=== PATIENT | female | born 1995 | race Two or more races ===

== ENCOUNTER 2019-02-12 18:45 | Emergency (ER) | payer OTHER ==
[~2019-02-12] VITALS: Ht 162.6 cm; Wt 117.9 kg
== END 2019-02-12 20:26 | disposition home or self-care (01) ==
LOC: ER 18:45
DX: S80.871A Other superficial bite, right lower leg, initial encounter (principal); L03.115 Cellulitis of right lower limb; W57.XXXA Bitten or stung by nonvenomous insect and other nonvenomous arthropods, initial encounter; Y93.89 Activity, other specified; Y92.89 Other specified places as the place of occurrence of the external cause; Y99.8 Other external cause status

== ENCOUNTER 2019-10-29 20:34 | Inpatient (IN) | payer OTHER ==
[~2019-10-29] VITALS: Ht 162.6 cm; Wt 117.9 kg
[2019-10-29] MEDS ORDERED: SIDEROL TABLET1 EACH (20:43)
[2019-10-31] MEDS ORDERED: SPRINTEC 28 DA1 EACH PO (08:37)
== END 2019-10-31 10:06 | disposition home or self-care (01) | DRG 760 ==
LOC: ER 20:34 → SEC-K 22:07 → OB/GYN 22:07
PROVIDERS: ADMIT Obstetrics & Gynecology
PROC: BU46ZZZ Ultrasonography of Uterus (ICD-10-PCS; principal; 2019-10-29)
PROC: 30233N1 Transfusion of Nonautologous Red Blood Cells into Peripheral Vein, Percutaneous Approach (ICD-10-PCS; 2019-10-30)
DX: N92.0 Excessive and frequent menstruation with regular cycle (principal); D62 Acute posthemorrhagic anemia; N84.0 Polyp of corpus uteri

== ENCOUNTER 2019-12-17 06:02 | Day surgery (SDC) | payer OTHER ==
[~2019-12-17 06:02] MED LIST: SIDEROL TABLET1 EACH; SPRINTEC 28 DA1 EACH PO
[2019-12-17] MEDS ORDERED: MONDOXYNE NL100 MG PO (09:44)
[2019-12-17] MEDS ORDERED: Tylenol #3 PO (09:44)
== END 2019-12-17 14:10 | disposition home or self-care (01) ==
LOC: CIR.AMB 06:02 → ADM 11:45 → CIR.AMB 11:45
DX: D25.0 Submucous leiomyoma of uterus (principal); N84.0 Polyp of corpus uteri

== ENCOUNTER → 2020-10-07 | Outpatient (CLI) | payer OTHER ==
[~2020-10-07] MED LIST changes: +MONDOXYNE NL100 MG PO; +Tylenol #3 PO
== END | disposition home or self-care (01) ==
LOC: PRENATAL 10:00
PROVIDERS: ATTEND Obstetrics & Gynecology Maternal & Fetal Medicine
DX: O35.0XX1 Maternal care for (suspected) central nervous system malformation in fetus, fetus 1 (principal); O35.3XX1 Maternal care for (suspected) damage to fetus from viral disease in mother, fetus 1; O98.512 Other viral diseases complicating pregnancy, second trimester; Z36.89 Encounter for other specified antenatal screening; O99.212 Obesity complicating pregnancy, second trimester; Z3A.20 20 weeks gestation of pregnancy

== ENCOUNTER → 2021-01-12 | Outpatient (CLI) | payer OTHER | END | disposition home or self-care (01) | LOC: PRENATAL 08:58 | PROVIDERS: ATTEND Obstetrics & Gynecology Maternal & Fetal Medicine | DX: O26.843 Uterine size-date discrepancy, third trimester (principal); O36.8131 Decreased fetal movements, third trimester, fetus 1; Z36.89 Encounter for other specified antenatal screening; Z3A.35 35 weeks gestation of pregnancy ==

== ENCOUNTER 2021-02-01 13:15 | Inpatient (IN) | payer OTHER ==
[~2021-02-01] VITALS: Ht 162.6 cm; Wt 3.2 kg
[2021-02-02] MEDS ORDERED: PRENATAL TABLE1 EAC1 PO (06:52)
[2021-02-02] MEDS ORDERED: TYLENOL325 MG (15:47)
[2021-02-05] MEDS ORDERED: Tylenol #3 PO (11:54)
== END 2021-02-05 13:55 | disposition home or self-care (01) | DRG 788 ==
LOC: LDR 02-02 06:22 → OB/GYN 02-02 06:22 → LDR 02-02 06:42 → O/R 02-02 14:33 → OB/GYN 02-02 16:10
PROVIDERS: Obstetrics & Gynecology; ADMIT Obstetrics & Gynecology; ATTEND Obstetrics & Gynecology
PROC: 10907ZC Drainage of Amniotic Fluid, Therapeutic from Products of Conception, Via Natural or Artificial Opening (ICD-10-PCS; 2021-02-02)
PROC: 3E033VJ Introduction of Other Hormone into Peripheral Vein, Percutaneous Approach (ICD-10-PCS; 2021-02-02)
PROC: 4A1HXFZ Monitoring of Products of Conception, Cardiac Rhythm, External Approach (ICD-10-PCS; 2021-02-02)
PROC: 10D00Z1 Extraction of Products of Conception, Low, Open Approach (ICD-10-PCS; principal; 2021-02-02 13:00)
DX: O62.1 Secondary uterine inertia (principal); O13.4 Gestational [pregnancy-induced] hypertension without significant proteinuria, complicating childbirth; O99.824 Streptococcus B carrier state complicating childbirth; Z3A.37 37 weeks gestation of pregnancy; Z37.0 Single live birth; Z20.822 Contact with and (suspected) exposure to COVID-19

== ENCOUNTER 2022-10-31 03:36 | Emergency (ER) | payer OTHER ==
[~2022-10-31] VITALS: Ht 165.1 cm; Wt 124.3 kg
[~2022-10-31 03:36] MED LIST changes: +PRENATAL TABLE1 EAC1 PO; +TYLENOL325 MG
[2022-10-31] MEDS ORDERED: INTESTINEX680 M1 PO (10:56)
[2022-10-31] MEDS ORDERED: ONDANSETRON ODT4 MG PO (10:56)
[2022-10-31] MEDS ORDERED: PEPCID AC20 MG PO (10:56)
== END 2022-10-31 11:34 ==
LOC: ER 03:36
DX: K52.9 Noninfective gastroenteritis and colitis, unspecified (principal)

== ENCOUNTER 2024-08-07 10:26 | Outpatient (CLI) | payer OTHER ==
[~2024-08-07 10:26] MED LIST changes: +INTESTINEX680 M1 PO; +ONDANSETRON ODT4 MG PO; +PEPCID AC20 MG PO
== END 2024-08-07 10:27 | disposition home or self-care (01) ==
LOC: PRENATAL 10:26
PROVIDERS: ATTEND Obstetrics & Gynecology Maternal & Fetal Medicine
DX: O26.849 Uterine size-date discrepancy, unspecified trimester (principal); O34.219 Maternal care for unspecified type scar from previous cesarean delivery; O99.280 Endocrine, nutritional and metabolic diseases complicating pregnancy, unspecified trimester; O99.210 Obesity complicating pregnancy, unspecified trimester; Z36.0 Encounter for antenatal screening for chromosomal anomalies; Z3A.16 16 weeks gestation of pregnancy

== ENCOUNTER → 2024-09-01 | Outpatient (CLI) | payer OTHER | END | disposition home or self-care (01) | LOC: PRENATAL 12:14 | PROVIDERS: ATTEND Obstetrics & Gynecology Maternal & Fetal Medicine | DX: O44.00 Complete placenta previa NOS or without hemorrhage, unspecified trimester (principal); O34.219 Maternal care for unspecified type scar from previous cesarean delivery; O99.280 Endocrine, nutritional and metabolic diseases complicating pregnancy, unspecified trimester; Z14.8 Genetic carrier of other disease; Z3A.20 20 weeks gestation of pregnancy ==

== ENCOUNTER → 2024-11-02 | Outpatient (CLI) | payer OTHER | END | disposition home or self-care (01) | LOC: PRENATAL 14:26 | PROVIDERS: ATTEND Obstetrics & Gynecology Maternal & Fetal Medicine | DX: O26.849 Uterine size-date discrepancy, unspecified trimester (principal); O34.219 Maternal care for unspecified type scar from previous cesarean delivery; O99.280 Endocrine, nutritional and metabolic diseases complicating pregnancy, unspecified trimester; O99.210 Obesity complicating pregnancy, unspecified trimester; Z14.8 Genetic carrier of other disease; O28.3 Abnormal ultrasonic finding on antenatal screening of mother; Z3A.29 29 weeks gestation of pregnancy ==

== ENCOUNTER 2024-11-09 06:58 | Emergency (ER) | payer OTHER ==
[~2024-11-09] VITALS: Ht 162.6 cm; Wt 115.2 kg
[2024-11-09 09:10] LABS: HEMATOCRIT 34.4 % (36.0-45.00); HEMOGLOBIN 11.9 g/dL (12.0-15.00); MEAN CELL VOLUME 84.7 fL (80.00-100.00); MEAN CORPUSCULAR HEMOGLOBIN 29.2 pg (27.00-32.0); MEAN CORPUSCULAR HGB CONC 34.5 g/dl (32.0-36.0); PLATELET COUNT 154 K/uL (150-450); RED BLOOD COUNT 4.06 M/uL (4.00-6.00); RED CELL DISTRIBUTION WIDTH 15.1 % (11.5-14.5)
[2024-11-09] MEDS ORDERED: OSELTAMIVIR PHOSPHATE 75 MG CAPSULE PO STA (09:44)
[2024-11-09 10:08] LABS: PH,URINE 5.5 (5.0-8.0); URINE APPEARANCE Cloudy; URINE BILIRRUBIN Small (NEGATIVE); URINE BLOOD Moderate; URINE COLOR Dark Yellow; URINE GLUCOSE Negative (NEGATIVE); URINE LEUKOCYTE Trace; URINE NITRATE Negative; URINE PROTEIN Trace (NEGATIVE)
[2024-11-09 10:11] LABS: URINE BACTERIA 1238.6 uL (0.0-1933); URINE EPITHELIAL CELLS 93.3 uL (0.0-38.8); URINE WBC 31.9 uL (0.0-23.2)
[2024-11-09 10:22] LABS: URINE CAST 0.73 uL (0.0-1.40); URINE KETONE >=160 (NEGATIVE)
[2024-11-09 10:28] LABS: URINE CRYSTALS FEW /HPF
[2024-11-09] MEDS ORDERED: OSEL75CA PO (10:38)
== END 2024-11-09 10:43 | disposition home or self-care (01) ==
LOC: ER 07:00
PROVIDERS: Emergency Medicine
DX: O98.513 Other viral diseases complicating pregnancy, third trimester (principal); Z3A.30 30 weeks gestation of pregnancy; J10.1 Influenza due to other identified influenza virus with other respiratory manifestations; Z20.822 Contact with and (suspected) exposure to COVID-19

== ENCOUNTER → 2024-12-14 10:00 | Outpatient (CLI) | payer OTHER ==
[~2024-12-14 10:00] MED LIST changes: +OSEL75CA PO
== END | disposition home or self-care (01) ==
LOC: PRENATAL 10:00
PROVIDERS: ATTEND Obstetrics & Gynecology Maternal & Fetal Medicine
DX: O26.849 Uterine size-date discrepancy, unspecified trimester (principal); O36.8199 Decreased fetal movements, unspecified trimester, other fetus; O34.219 Maternal care for unspecified type scar from previous cesarean delivery; O99.280 Endocrine, nutritional and metabolic diseases complicating pregnancy, unspecified trimester; O99.210 Obesity complicating pregnancy, unspecified trimester; O28.3 Abnormal ultrasonic finding on antenatal screening of mother; Z14.8 Genetic carrier of other disease; Z3A.37 37 weeks gestation of pregnancy

== ENCOUNTER 2025-01-08 09:45 | Inpatient (IN) | payer OTHER ==
[~2025-01-08] VITALS: Ht 162.6 cm; Wt 116.6 kg
[2025-01-08] MEDS ORDERED: METHIMAZOLE10 MG PO (11:18)
[2025-01-08 12:42] LABS: HEMATOCRIT 37.2 % (36.0-45.00); HEMOGLOBIN 12.5 g/dL (12.0-15.00); MEAN CELL VOLUME 87.3 fL (80.00-100.00); MEAN CORPUSCULAR HEMOGLOBIN 29.4 pg (27.00-32.0); MEAN CORPUSCULAR HGB CONC 33.7 g/dl (32.0-36.0); PLATELET COUNT 176 K/uL (150-450); RED BLOOD COUNT 4.27 M/uL (4.00-6.00); RED CELL DISTRIBUTION WIDTH 15.6 % (11.5-14.5)
[2025-01-08 13:03] LABS: URINE APPEARANCE Clear; URINE BILIRRUBIN Negative (NEGATIVE); URINE BLOOD Negative; URINE COLOR Yellow; URINE GLUCOSE Negative (NEGATIVE); URINE KETONE Negative (NEGATIVE); URINE LEUKOCYTE Small; URINE NITRATE Negative; URINE PROTEIN Negative (NEGATIVE); URINE UROBILINOGEN 0.2 E.U./dl
[2025-01-08 13:05] LABS: URINE BACTERIA 1348.8 uL (0.0-1933); URINE EPITHELIAL CELLS 83.5 uL (0.0-38.8); URINE WBC 38.1 uL (0.0-23.2)
[2025-01-08 13:10] LABS: INR 0.97; PARTIAL THROMBOPLASTIN TIME 30.1 SECONDS (22.0-34.0); PROTHROMBIN TIME 10.6 SECONDS (9.0-11.5)
[2025-01-08 13:14] LABS: URINE CAST 0.29 uL (0.0-1.40)
[2025-01-12 07:55] VITALS: BP 122/82
[2025-01-12] MEDS ORDERED: OXYTOCIN 10 UNITS/ML VIAL ONE (12:57)
[2025-01-12] MEDS ORDERED: ERYTHROMYCIN BASE OPHT 1GM EACH TUBE OP ONE (12:57)
[2025-01-12] MEDS ORDERED: CEFAZOLIN SODIUM 1,000 MG VIAL ONE (13:40)
[2025-01-12] MEDS ORDERED: PROMETHAZINE HCL 50 MG/ML AMPUL IM PRN (15:00)
[2025-01-12] MEDS ORDERED: MEPERIDINE HCL/PF 50 MG/ML VIAL IM PRN (15:00)
[2025-01-12] MEDS ORDERED: MORPHINE SULFATE 4 MG/ML VIAL IV ONE ×2 (16:35→17:05)
[2025-01-12 20:18] VITALS: BP 102/67
[2025-01-12 21:43] LABS: HEMOGLOBIN 10.6 g/dL (12.0-15.00); MEAN CELL VOLUME 86.4 fL (80.00-100.00); MEAN CORPUSCULAR HEMOGLOBIN 29.6 pg (27.00-32.0); MEAN CORPUSCULAR HGB CONC 34.2 g/dl (32.0-36.0); PLATELET COUNT 165 K/uL (150-450); RED BLOOD COUNT 3.59 M/uL (4.00-6.00); RED CELL DISTRIBUTION WIDTH 15.3 % (11.5-14.5)
[2025-01-13 00:17] VITALS: BP 117/77
[2025-01-13 04:30] VITALS: BP 102/65
[2025-01-13] MEDS ORDERED: SIMETHICONE 125 MG CAPSULE PO SCH (08:00)
[2025-01-13] MEDS ORDERED: OxyCODONE HCL/APAP UD (PERCOCET) PO PRN (08:00)
[2025-01-13 08:04] VITALS: BP 116/77
[2025-01-13] MEDS ORDERED: DOCUSATE SODIUM 100MG CAP PO SCH (09:00)
[2025-01-13] MEDS ORDERED: PNV,CALCIUM 72/IRON/FOLIC ACID 1 TAB TABLET PO SCH (09:00)
[2025-01-13 16:00] VITALS: BP 100/65
[2025-01-14] VITALS: BP 104/66
[2025-01-14 08:42] VITALS: BP 102/67
[2025-01-14 13:44] VITALS: BP 100/68
[2025-01-14 16:38] VITALS: BP 104/70
[2025-01-15] VITALS: BP 93/58
[2025-01-15 08:00] VITALS: BP 104/69
== END 2025-01-15 12:02 | disposition home or self-care (01) | DRG 788 ==
LOC: OB/GYN 01-12 07:00 → O/R 01-12 07:30 → OB/GYN 01-12 09:45
PROVIDERS: ADMIT Obstetrics & Gynecology; ATTEND Obstetrics & Gynecology
PROC: 4A1HXCZ Monitoring of Products of Conception, Cardiac Rate, External Approach (ICD-10-PCS; 2025-01-12)
PROC: 10D00Z1 Extraction of Products of Conception, Low, Open Approach (ICD-10-PCS; principal; 2025-01-12 07:00)
DX: O34.211 Maternal care for low transverse scar from previous cesarean delivery (principal); Z3A.39 39 weeks gestation of pregnancy; Z37.0 Single live birth

== ENCOUNTER 2025-09-14 11:33 | Emergency (ER) | payer OTHER ==
[~2025-09-14] VITALS: Ht 162.6 cm; Wt 113.4 kg
[~2025-09-14 11:33] MED LIST changes: +METHIMAZOLE10 MG PO
[2025-09-14] MEDS ORDERED: ONDANSETRON HCL 2 MG/ML VIAL IV ONE (12:15)
[2025-09-14] MEDS ORDERED: 0.9 % SODIUM CHLORIDE 1,000 ML IV SCH (12:15)
[2025-09-14] MEDS ORDERED: PROMETHAZINE HCL 50 MG/ML AMPUL IM ONE ×2 (12:30→12:32)
[2025-09-14] MEDS ORDERED: ONDANSETRON HCL 2 MG/ML VIAL ONE (12:31)
[2025-09-14 13:08] LABS: BASO % 0.1 % (0.1-1.2); EOS # 0.06 (0.04-0.54); EOS % 0.7 % (0.7-7.0); LYMPH # 0.88 (1.18-3.74); LYMPH % 10.4 % (19.3-53.1); MEAN PLATELET VOLUME 9.70 fl (9.4-12.4); MONO # 0.31 (0.24-0.82); MONO % 3.6 % (4.7-12.5); NEUT # 7.22 (1.56-6.13); NEUT % 85.0 % (34.0-71.1); RED CELL DISTRIBUTION WIDTH 14.0 % (11.6-14.4)
[2025-09-14 13:30] LABS: ALT/SGPT 25.0 U/L (12-78); AST/SGOT 14.0 U/L (15-37); BILIRUBIN TOTAL 0.59 mg/dL (0.3-1.2); BUN CREA RATIO 20.0 (7.0-25.0); CREATININE SERUM 0.4 mg/dL (0.55-1.02); GFR 190.06; GLOBULINA 4.2 G/DL (2.4-3.5); GLUCOSE FASTING 96.0 mg/dL (65-100); OSMOLALITY SERUM 281.0 MOSM/KG (275-295)
[2025-09-14 14:13] LABS: URINE APPEARANCE Cloudy; URINE BILIRRUBIN Negative (NEGATIVE); URINE BLOOD Large; URINE COLOR Dark Yellow; URINE GLUCOSE Negative (NEGATIVE); URINE KETONE Trace (NEGATIVE); URINE LEUKOCYTE Trace; URINE NITRATE Negative; URINE PROTEIN 30 (NEGATIVE); URINE UROBILINOGEN 0.2 E.U./dl
[2025-09-14 14:16] LABS: URINE BACTERIA 877.1 uL (0.0-1933); URINE EPITHELIAL CELLS 89.5 uL (0.0-38.8); URINE RBC 577.7 uL (0.0-20.8); URINE WBC 19.2 uL (0.0-23.2)
[2025-09-14 14:44] LABS: TYPE CELLS SQUAMOUS; URINE CAST 1.31 uL (0.0-1.40); URINE MUCUS SCANT
[2025-09-14] MEDS ORDERED: MORPHINE SULFATE 4 MG/ML CARTRIDGE IV ONE (16:15)
== END 2025-09-14 18:51 | disposition home or self-care (01) ==
LOC: ER 11:33
PROVIDERS: General Practice
DX: R10.13 Epigastric pain (principal); R11.10 Vomiting, unspecified